=== PATIENT | male | born 1995 | race Caucasian/White ===

== ENCOUNTER 2019-10-02 14:28 | Emergency (ER) | payer MEDICARE, OTHER, SELFPAY ==
[2019-10-02 14:32] VITALS: BP 125/87; PULSE 114; RESP 18; TEMP 37; O2SAT 98; BMI 17.9
--- NOTE | 2019-10-02 14:45 | XR_ITS ---
PROCEDURE: XR HAND RT MIN 3V CLINICAL INDICATION: pain Posttraumatic pain COMPARISON: No exams were available for comparison FINDINGS: There is a comminuted fracture involving the distal aspect the 5th metacarpal. Longitudinal component of the fracture since into the distal articulating surface. The fracture is nondisplaced. There is some minimal volar angulation of the distal fracture fragment. There is deformity of the 5th DIP joint with radial angulation of the distal phalanx IMPRESSION: Boxer's fracture of the 5th metacarpal with longitudinal component extending into the articular surface distally Dictated by: Gabriele Devine MD 10/02/2019 15:44 Electronically signed by Gabriele Devine MD in [place] 10/02/2019 15:44
--- NOTE | 2019-10-02 14:45 | XR_ITS ---
PROCEDURE: XR WRIST RT MIN 3V CLINICAL INDICATION: pain COMPARISON: No exams were available for comparison FINDINGS: No fracture, dislocation, lytic change, or blastic change evident. No significant degenerative change IMPRESSION: No acute findings. Dictated by: Gabriele Devine MD 10/02/2019 15:43 Electronically signed by Gabriele Devine MD in [place] 10/02/2019 15:43
--- NOTE | 2019-10-02 14:47 | [facility].EDGENADL ---
ED Disposition Clinical Impression: Fracture of fifth metacarpal bone Qualifiers: Encounter type: initial encounter Fracture type: closed Metacarpal location: neck Fracture alignment: nondisplaced Laterality: right Qualified Code(s): S62.366A - Nondisplaced fracture of neck of fifth metacarpal bone, right hand, initial encounter for closed fracture Wrist sprain Qualifiers: Encounter type: initial encounter Laterality: right Qualified Code(s): S63.501A - Unspecified sprain of right wrist, initial encounter Disposition: Home, Self-Care Condition on Discharge: Good Instructions: DI for a Hand Fracture, How to Take Care of Your Splint Additional Instructions: Additional instructions for FRACTURED (BROKEN) BONE: See Dr. Ceballos or Darshan as soon as possible for further evaluation. Treat your splint like you would a cast: Do not get it wet (cover with a plastic bag while bathing or showering). If the splint feels too tight, you may loosen the [place] wrap covering it, but do not remove the splint. You may ice the fracture by applying an ice pack over the top of the splint, without removing the splint. Return to an emergency department immediately if you have uncontrollable pain, loss of feeling or inability to move your injured extremity. Additional instructions for CONTROLLED SUBSTANCES: You have been prescribed a medication that is a controlled substance. Controlled substances include pain medications known as opiates and sedative nerve medications known as benzodiazepines. Tramadol, fioricet, and gabapentin are also controlled substances. Some common opiates include: Codeine (such as Tylenol #3) Hydrocodone (Vicodin, Lortab, Lorcet, [place]) Oxycodone (Percocet, Percodan, Oxycodone, Oxy IR) Some common benzodiazepines include: Diazepam (Valium) Lorazepam (Ativan) Alprazolam (Xanax) Clonazepam (Klonopin) Oxazepam (Serax) All of these controlled substances are highly addictive and frequently abused. Misuse can and frequently does lead to addiction as well as overdose and . Medication should be stored in a locked cabinet or other secure storage unit. Do not store the medication in a motor vehicle. Short term supplies, 3 days or less, are prescribed because of the highly addictive nature of the medication. Any of the controlled substance medication NOT taken should be disposed of properly and NOT SAVED. The recommended method of disposing of unused medications is: Place the medicines in a sealable plastic bag. If the medicine is a solid, crush it or add water to dissolve it. Add something undesirable (cat litter, coffee grounds, etc.) Dispose of sealed bag in household trash Do not flush or pour unused medicines down a sink or drain. Controlled substances should not be shared, given away or sold. Because of the addictive nature and frequent abuse, these medications are sometimes stolen. These medications should be kept in a safe place where they cannot be stolen. Do not keep them in your car or purse. Lost or stolen prescriptions for controlled substances WILL NOT BE REFILLED in this emergency department, regardless of whether a police report was filed. Prescriptions: Hydrocod/Acet 5/325 mg [[place] 5/325mg tablet] 1 tab PO Q6HP PRN #10 tab PRN Reason: Pain Prescription Printed Referrals: Kait Sexton MD [Physician] - - Critical Care Critical Care Time: No Attestation: On , the high probability of a clinically significant, sudden or life threatening deterioration of the following system(s) required my full and direct attention, intervention and personal management. The time I documented below is in addition to time spent performing reported procedures but includes the following listed in this critical care notation. Medical Decision Making - Thomas Inquiry Pt receiving controlled substance: Yes Thomas was queried for this patient: Yes Reference #:: [id number] Risks and benefits of using
[2019-10-02 15:29] VITALS: BP 125/87; PULSE 114; RESP 18; TEMP 37; O2SAT 98
== END 2019-10-02 15:31 | disposition home or self-care (01) ==
PROVIDERS: Emergency Provider Emergency Medicine; PCP Pediatrics
DX: S62.366A Nondisplaced fracture of neck of fifth metacarpal bone, right hand, initial encounter for closed fracture (principal); W22.01XA Walked into wall, initial encounter
CPT/HCPCS: 29125; 73110; 73130; 99283

== ENCOUNTER 2021-01-09 13:50 | Emergency (ER) | payer MEDICARE, OTHER, SELFPAY ==
[2021-01-09 13:51] VITALS: BP 145/89; PULSE 107; RESP 18; TEMP 36.7; O2SAT 97; BMI 18.1
--- NOTE | 2021-01-09 14:15 | [facility].EDGENADL ---
ED Disposition Clinical Impression: Fracture of fifth metacarpal bone of right hand Qualifiers: Encounter type: initial encounter Fracture type: closed Metacarpal location: other portion of metacarpal Fracture alignment: displaced Qualified Code(s): S62.396A - Other fracture of fifth metacarpal bone, right hand, initial encounter for closed fracture Fracture of fourth metacarpal bone Qualifiers: Encounter type: initial encounter Fracture type: closed Metacarpal location: shaft Fracture alignment: nondisplaced Laterality: right Qualified Code(s): S62.354A - Nondisplaced fracture of shaft of fourth metacarpal bone, right hand, initial encounter for closed fracture Disposition: Home, Self-Care Condition on Discharge: Good Instructions: DI for a Hand Fracture, How to Take Care of Your Splint Additional Instructions: Additional instructions for FRACTURED (BROKEN) BONE: See Dr. Ceballos as soon as possible for further evaluation. Treat your splint like you would a cast: Do not get it wet (cover with a plastic bag while bathing or showering). If the splint feels too tight, you may loosen the [place] wrap covering it, but do not remove the splint. You may ice the fracture by applying an ice pack over the top of the splint, without removing the splint. Return to an emergency department immediately if you have uncontrollable pain, loss of feeling or inability to move your injured extremity. Additional instructions for CONTROLLED SUBSTANCES: You have been prescribed a medication that is a controlled substance. Controlled substances include pain medications known as opiates and sedative nerve medications known as benzodiazepines. Tramadol, fioricet, and gabapentin are also controlled substances. Some common opiates include: Codeine (such as Tylenol #3) Hydrocodone (Vicodin, Lortab, Lorcet, [place]) Oxycodone (Percocet, Percodan, Oxycodone, Oxy IR) Some common benzodiazepines include: Diazepam (Valium) Lorazepam (Ativan) Alprazolam (Xanax) Clonazepam (Klonopin) Oxazepam (Serax) All of these controlled substances are highly addictive and frequently abused. Misuse can and frequently does lead to addiction as well as overdose and . Medication should be stored in a locked cabinet or other secure storage unit. Do not store the medication in a motor vehicle. Short term supplies, 3 days or less, are prescribed because of the highly addictive nature of the medication. Any of the controlled substance medication NOT taken should be disposed of properly and NOT SAVED. The recommended method of disposing of unused medications is: Place the medicines in a sealable plastic bag. If the medicine is a solid, crush it or add water to dissolve it. Add something undesirable (cat litter, coffee grounds, etc.) Dispose of sealed bag in household trash Do not flush or pour unused medicines down a sink or drain. Controlled substances should not be shared, given away or sold. Because of the addictive nature and frequent abuse, these medications are sometimes stolen. These medications should be kept in a safe place where they cannot be stolen. Do not keep them in your car or purse. Lost or stolen prescriptions for controlled substances WILL NOT BE REFILLED in this emergency department, regardless of whether a police report was filed. Prescriptions: Oxycodone HCl/Acetaminophen [Percocet 5/325mg tablet] 1 tab PO Q6HP PRN #10 tablet PRN Reason: Moderate To Severe Pain Transmission Status: Received by [facility]/pharmacy #[id number] Referrals: Provider,MD Guillermina [Primary Care Provider] - Roger Ceballos MD [Staff Physician] - - Critical Care Critical Care Time: No Attestation: On 01/09/21, the high probability of a clinically significant, sudden or life threatening deterioration of the following system(s) required my full and direct attention, intervention and personal management. The time I documented below is in addition to time spent perf
--- NOTE | 2021-01-09 14:19 | XR_ITS ---
PROCEDURE INFORMATION: Exam: XR Right Hand Exam date and time: 01/09/2021 2:19 PM Age: 25 years old Clinical indication: Injury or trauma; Other: Tree fell on right hand; Crushing TECHNIQUE: Imaging protocol: XR Right hand. Views: 3 or more views. COMPARISON: CR XR HAND RT MIN 3V 10/02/2019 2:48 PM FINDINGS: Bones/joints: Acute-appearing, minimally displaced fracture of the distal 5th metacarpal diaphysis, with dorsal fracture apex angulation. Nondisplaced fracture of the mid 4th metacarpal diaphysis, with some bridging callus formation, likely healing/subacute fracture. 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 Degenerative changes of the 2nd through 4th distal interphalangeal joints, manifest by joint space narrowing and osteophyte formation. Soft tissues: Mild soft tissue swelling involving the dorsal lateral aspects of the hand. IMPRESSION: 1. Acute-appearing, minimally displaced fracture of the distal 5th metacarpal diaphysis, with dorsal fracture apex angulation. 2. Nondisplaced fracture of the mid 4th metacarpal diaphysis, with some bridging callus formation, likely healing/subacute fracture.
--- NOTE | 2021-01-09 14:19 | XR_ITS ---
PROCEDURE INFORMATION: Exam: XR Right Wrist Exam date and time: 01/09/2021 2:19 PM Age: 25 years old Clinical indication: Injury or trauma; Other: Tree fell on wrist; Crushing; Patient HX: Tree fell on right wrist TECHNIQUE: Imaging protocol: XR Right wrist. Views: 3 or more views. COMPARISON: CR XR WRIST RT MIN 3V 10/02/2019 2:50 PM FINDINGS: Bones/joints: Subacute/healing fracture of the mid 4th metacarpal diaphysis, with fracture lucency in bridging callus formation. Acute-appearing, minimally displaced fracture of the distal 5th metacarpal diaphysis, with dorsal fracture apex angulation. Soft tissues: Mild dorsal and lateral hand soft tissue swelling. IMPRESSION: 1. Acute-appearing, minimally displaced fracture of the distal 5th metacarpal diaphysis, with dorsal fracture apex angulation. 2. Mild dorsal and lateral hand soft tissue swelling.
[2021-01-09 15:32] VITALS: BP 127/74; PULSE 87; RESP 16; TEMP 36.6; O2SAT 98
== END 2021-01-09 15:34 | disposition home or self-care (01) ==
PROVIDERS: Emergency Provider Emergency Medicine
DX: S62.396A Other fracture of fifth metacarpal bone, right hand, initial encounter for closed fracture (principal); S62.354A Nondisplaced fracture of shaft of fourth metacarpal bone, right hand, initial encounter for closed fracture; W22.8XXA Striking against or struck by other objects, initial encounter; Y92.9 Unspecified place or not applicable
CPT/HCPCS: 29125; 73110; 73130; 99283